=== PATIENT | female | born 1955 | race Caucasian/White ===

== ENCOUNTER 2020-11-26 18:07 | Emergency (ER) | payer MEDICARE ==
[2020-11-26] MEDS ORDERED: FENTANYL CITR 100 MCG/2 ML ONE (19:03)
[2020-11-26] MEDS ORDERED: ONDANSETRON 4 MG/2 ML VIAL ONE (19:05)
--- NOTE | 2020-11-26 19:20 | RAD REPORT ---
EXAM DESCRIPTION: RAD - Wrist Right 3 View - 11/26/2020 7:14 pm CLINICAL HISTORY: PAIN Pain COMPARISON: No comparisons FINDINGS: Moderately angulated fracture of the distal radius is present with mild impaction and comm inution. Moderate wrist soft tissue swelling. No carpal dislocation evident.
--- NOTE | 2020-11-26 19:28 | RAD REPORT ---
EXAM DESCRIPTION: RAD - Wrist Left 3 View - 11/26/2020 7:17 pm CLINICAL HISTORY: PAIN Pain COMPARISON: No comparisons FINDINGS: Mild intraarticular fracture is seen of the distal radius with surrounding soft tissue swe lling. No carpal dislocation is evident.
[2020-11-26] MEDS ORDERED: LIDOCAINE 1% MPF 5 ML VIAL ONE (20:09)
[2020-11-26] MEDS ORDERED: MORPHINE 4 MG/ML SYR ONE ×2 (20:10→20:39)
--- NOTE | 2020-11-26 21:18 | RAD REPORT ---
EXAM DESCRIPTION: RAD - Wrist Right 2 View - 11/26/2020 9:05 pm CLINICAL HISTORY: post reduction Pain COMPARISON: Wrist Right 3 View dated 11/26/2020 FINDINGS: The previously noted distal radius fracture has been partially reduced placed within a kunal ster splint. Approximately 5-6 mm of displacement of the fracture fragments persists. Bone detail is limited by splint material.
--- NOTE | 2020-11-26 21:36 | EDPHYS ---
Physician Documentation [facility] Name: Nadia Gay Age: 65 yrs Sex: Female : 1955 Arrival Date: 11/26/2020 Time: 18:15 Bed 26 Private MD: ED Physician Red Bailon HPI: 11/26 18:56 This 65 yrs old Female presents to ER via EMS with complaints of Wrist Pain. pm1 18:56 The patient or guardian reports pain. The complaints affect the left wrist diffusely, pm1 right wrist diffusely. Context: The problem was sustained outdoors, resulted from slipped on ice on steps. Landed with both hands out in front of her. No headache, head injury, neck pain, LOC. Onset: The symptoms/episode began/occurred just prior to arrival. Modifying factors: The symptoms are alleviated by holding still. Associated signs and symptoms: Pertinent negatives: cyanosis distally, decreased sensation distally, numbness distally, tingling distally. The patient has not experienced similar symptoms in the past. The patient has not recently seen a physician. Historical: - Allergies: 18:15 No Known Allergies; aa5 - PMHx: 18:15 None; aa5 - Immunization history:: Adult Immunizations unknown. - Social history:: Smoking status: Patient reports the use of cigarette tobacco products, denies chronic smoking, but will smoke occasionally. ROS: 18:56 Constitutional: Negative for fever, chills, and weight loss, Neck: Negative for injury, pm1 pain, and swelling, Cardiovascular: Negative for chest pain, palpitations, and edema, Respiratory: Negative for shortness of breath, cough, wheezing, and pleuritic chest pain, Skin: Negative for injury, rash, and discoloration, Neuro: Negative for headache, weakness, numbness, tingling, and seizure. 18:56 MS/extremity: Positive for pain, of the right wrist and left wrist. Exam: 18:56 Hand exam: Exam is positive for pain, tenderness, Pulses: noted to be 2+ in the right pm1 radial artery and left radial artery. 18:56 Skin: Exam negative for acute changes, any evidence of obvious injury. 18:56 Constitutional: This is a well developed, well nourished patient who is awake, alert, and in no acute distress. 18:56 Cardiovascular: Exam negative for acute changes, Rate: normal, Rhythm: regular, Pulses: no pulse deficits are appreciated. 18:56 Respiratory: Exam negative for acute changes, respiratory distress, shortness of breath. 18:56 Abdomen/GI: Exam negative for acute changes, Inspection: abdomen appears normal, Palpation: abdomen is soft and non-tender, in all quadrants. 18:56 Musculoskeletal/extremity: Extremities: no hip pain or tenderness present. 18:56 Neuro: Exam negative for acute changes, Orientation: is normal, Mentation: is normal, Motor: is normal, moves all fours, Sensation: is normal, no obvious gross deficits. Vital Signs: 18:15 BP 180 / 112; Pulse 88; Resp 17; Temp 98.4(TE); Pulse Ox 96% on R/A; Weight 49.9 kg; ss Height 5 ft. 7 in. (170.18 cm); Pain 8/10; 18:58 BP 147 / 106; Pulse 78; Resp 18 S; Pulse Ox 98% on R/A; aa5 19:04 Pulse Ox 87% on R/A; aa5 19:05 BP 145 / 104; Pulse 91; Resp 14 S; Pulse Ox 96% on 2 lpm NC; aa5 18:15 Body Mass Index 17.23 (49.90 kg, 170.18 cm) Procedures: 20:50 Splinting: Splint applied to right wrist using Orthoglass splint, applied by myself. pm1 Examined by me, post splint application: neurovascular intact, 2+ distal pulses palpable, brisk capillary refill noted, Patient tolerated well, reduced with traction. 20:50 Splinting: Splint applied to left wrist using Orthoglass splint, applied by myself. pm1 Examined by me, post splint application: neurovascular intact, 2+ distal pulses palpable, brisk capillary refill noted, Patient tolerated well. MDM: 18:29 Patient medically screened. pm1 19:02 Data reviewed: vital signs. pm1 21:29 Counseling: I had a detailed discussion with the patient and/or guardian regarding: the pm1 historical points, exam findings, and any diagnostic results supporting the discharge/admit diagnosis, radiology results, the need for outpatient follow up, for definitive care, a orthopedic surgeon, to return to the emergency department if symptoms worsen or persist or if there are any questions or concerns that arise at home. 11/26 18:30 Order name: Wrist Left (3 View) XRAY; Complete Time: 19:33 pm1 11/26 18:30 Order name: Wrist Right 3 View XRAY; Complete Time: 19:21 pm1 11/26 20:38 Order name: Wrist Right 2 View XRAY; Complete Time: 21:36 pm1 11/26 21:11 Order name: Wrist Right 2 View XRAY pm1 11/26 18:30 Order name: IV Saline Lock; Complete Time: 19:05 pm1 11/26 19:33 Order name: Sugar Tong Forearm Splint: bilateral; Complete Time: 21:20 pm1 11/26 19:34 Order name: Sling; Complete Time: 21:37 pm1 Administered Medications: 19:00 Drug: fentaNYL (PF) 50 mcg Route: IVP; Site: left antecubital; aa5 19:00 Drug: Zofran (Ondansetron) 4 mg Route: IVP; Site: left antecubital; aa5 20:18 Drug: morphine 4 mg Route: IVP; Site: left antecubital; sg 20:20 Drug: Lidocaine (1 %) 5 ml {Note: administered by Ildefonso FOUNTAIN for pre procedure.} sg Volume: 5 ml; Route: Infiltration; Disposition: 11/26/20 21:35 Discharged to Home. Impression: Closed distal right radius fracture with mild impaction and communition, Closed mild intrarticular left distal radius fracture, Fall on same level due to ice and snow. - Condition is Stable. - Discharge Instructions: Cast or Splint Care, Adult, Fall Prevention in the Home, Wrist Fracture Treated With Immobilization, How to Use a Sling. - Prescriptions for Tylenol- Codeine #3 300-30 mg Oral Tablet - take 2 tablets by ORAL route every 6 hours As needed; 20 tablet. - Medication Reconciliation Form, Thank You Letter, Antibiotic Education, Prescription Opioid Use form. - Follow up: Emergency Department; When: As needed; Reason: Worsening of condition. Follow up: Private Physician; When: 2 - 3 days; Reason: Recheck today's complaints, Continuance of care, Re-evaluation by your physician. - Problem is new. - Symptoms have improved. Addendum: 11/30/2020 19:27 Co-signature as Attending Physician, Red Bailon MD I agree with the assessment and t w4 plan of care. Signatures: Dispatcher [employer] EDMS Neto Sher, RN RN sg Yi Manzano RN RN aa5 Ildefonso Cash, SPECIAL EFFECTS PERSON SPECIAL EFFECTS PERSON pm1 Red Bailon MD MD tw4 Marybel Stevenson, RN RN ll2 Corrections: (The following items were deleted from the chart) 11/26 22:05 21:35 11/26/2020 21:35 Discharged to Home. Impression: Closed distal right radius ll2 fracture with mild impaction and communition; Closed mild intrarticular left distal radius fracture; Fall on same level due to ice and snow. Condition is Stable. Forms are Medication Reconciliation Form, Thank You Letter, Antibiotic Education, Prescription Opioid Use. Follow up: Emergency Department; When: As needed; Reason: Worsening of condition. Follow up: Private Physician; When: 2 - 3 days; Reason: Recheck today's complaints, Continuance of care, Re-evaluation by your physician. Problem is new. Symptoms have improved. pm1
--- NOTE | 2020-11-26 21:36 | ER ---
Nurse's Notes [facility] Name: Nadia Gay Age: 65 yrs Sex: Female : 1955 Arrival Date: 11/26/2020 Time: 18:15 Bed 26 Private MD: Diagnosis: Closed distal right radius fracture with mild impaction and communition;Closed mild intrarticular left distal radius fracture;Fall on same level due to ice and snow Presentation: 11/26 18:15 Chief complaint: Patient states: bilateral wrist pain after slipping on steps. Coronavirus screen: Client denies travel out of the [place] in the last 14 days. Ebola Screen: Patient denies exposure to infectious person. Patient denies travel to an Ebola-affected area in the 21 days before illness onset. 18:15 Method Of Arrival: EMS: [facility] 18:15 Acuity: EBONY 3 aa5 18:15 Initial Sepsis Screen: Does the patient meet any 2 criteria? No. Patient's initial aa5 sepsis screen is negative. Does the patient have a suspected source of infection? No. Patient's initial sepsis screen is negative. Risk Assessment: Do you want to hurt yourself or someone else? Patient reports no desire to harm self or others. Historical: - Allergies: 18:15 No Known Allergies; aa5 - PMHx: 18:15 None; aa5 - Immunization history:: Adult Immunizations unknown. - Social history:: Smoking status: Patient reports the use of cigarette tobacco products, denies chronic smoking, but will smoke occasionally. Screenin:30 Abuse screen: Denies threats or abuse. Nutritional screening: No deficits noted. ll2 Tuberculosis screening: No symptoms or risk factors identified. Fall Risk Fall in past 12 months (25 points). IV access (20 points). Assessment: 18:15 General: Appears uncomfortable, Behavior is calm, cooperative. Pain: Complains of pain aa5 in left wrist and right wrist Pain currently is 8 out of 10 on a pain scale. Quality of pain is described as sharp, throbbing, Pain began post-fall today Is continuous. Neuro: Level of Consciousness is awake, alert, obeys commands, Oriented to person, place, time, situation. Cardiovascular: Capillary refill < 3 seconds is brisk in bilateral fingers Patient's skin is warm and dry. Respiratory: Airway is patent Respiratory effort is even, unlabored, Respiratory pattern is regular, symmetrical. GI: No signs and/or symptoms were reported involving the gastrointestinal system. : No signs and/or symptoms were reported regarding the genitourinary system. EENT: No signs and/or symptoms were reported regarding the EENT system. Derm: Skin is pink, warm \T\ dry. Musculoskeletal: Deformity noted to mary wrist, swelling noted to mary wrist. 19:00 Reassessment: Patient is alert, oriented x 3, equal unlabored respirations, skin aa5 warm/dry/pink. 19:20 Reassessment: Patient is alert, oriented x 3, equal unlabored respirations, skin aa5 warm/dry/pink. Pt states pain has decreased after IV Fentanyl was given, states feeling better. . Vital Signs: 18:15 BP 180 / 112; Pulse 88; Resp 17; Temp 98.4(TE); Pulse Ox 96% on R/A; Weight 49.9 kg; ss Height 5 ft. 7 in. (170.18 cm); Pain 8/10; 18:58 BP 147 / 106; Pulse 78; Resp 18 S; Pulse Ox 98% on R/A; aa5 19:04 Pulse Ox 87% on R/A; aa5 19:05 BP 145 / 104; Pulse 91; Resp 14 S; Pulse Ox 96% on 2 lpm NC; aa5 18:15 Body Mass Index 17.23 (49.90 kg, 170.18 cm) ED Course: 18:15 Patient arrived in ED. ss 18:15 Arm band placed on. aa5 18:15 Patient has correct armband on for positive identification. Bed in low position. Call aa5 light in reach. Side rails up X2. Pulse ox on. NIBP on. 18:28 Ildefonso Cash, JAKI is PHCP. pm1 18:28 Red Bailon MD is Attending Physician. pm1 19:00 Report given to GERMANIA No. aa5 19:08 Triage completed. aa5 19:11 Wrist Left (3 View) XRAY In Process Unspecified. EDMS 19:11 Wrist Right 3 View XRAY In Process Unspecified. EDMS 21:05 Wrist Right 2 View XRAY In Process Unspecified. EDMS 21:22 Wrist Right 2 View XRAY In Process Unspecified. EDMS 21:30 No provider procedures requiring assistance completed. IV discontinued, intact, ll2 bleeding controlled, No redness/swelling at site. Pressure dressing applied. 22:05 Marybel Stevenson, RN is Primary Nurse. ll2 Administered Medications: 19:00 Drug: fentaNYL (PF) 50 mcg Route: IVP; Site: left antecubital; aa5 19:00 Drug: Zofran (Ondansetron) 4 mg Route: IVP; Site: left antecubital; aa5 20:18 Drug: morphine 4 mg Route: IVP; Site: left antecubital; sg 20:20 Drug: Lidocaine (1 %) 5 ml {Note: administered by Ildefonso FOUNTAIN for pre procedure.} sg Volume: 5 ml; Route: Infiltration; Outcome: 21:30 Discharged to home ambulatory. ll2 21:30 Condition: stable 21:30 Discharge instructions given to patient, Instructed on discharge instructions, follow up and referral plans. medication usage, Demonstrated understanding of instructions, follow-up care, medications, Prescriptions given X 1. 21:35 Discharge ordered by . pm1 22:05 Patient left the ED. ll2 Signatures: Dispatcher [employer] EDMS Neto Sher RN RN sg Calderon, Audri, RN RN aa5 Bernadette Huffman RN RN ss Marinas, Patrick, JAKI [employer] pm1 Marybel Stevenson, RN RN ll2
[2020-11-26 22:10] VITALS: TEMP 98.4
[2020-11-26 22:13] VITALS: BP 145/104; O2SAT 96
--- NOTE | 2020-11-27 07:54 | RAD REPORT ---
EXAM DESCRIPTION: RAD - Wrist Right 2 View - 11/26/2020 9:22 pm CLINICAL HISTORY: Post reduction, radius fracture COMPARISON: Wrist Right 2 View dated 11/26/2020; Wrist Right 3 View dated 11/26/2020 FINDINGS: PA and lateral views of the wrist were obtained with cast material in place. The second se t of post reduction images show the distal radius fracture now reduced to near anatomic alignment and position, substantially improved from the initial postreduction image. Ulna styloid fracture noted. IMPRESSION: The second set of post reduction images shows significant improvement in the alignment a nd position of the radius fracture fragment.
== END 2020-11-26 22:05 | disposition home or self-care (01) ==
LOC: ER 18:07 → EDBD 18:07 → ER 22:05
PROC: 2W3DX1Z Immobilization of Left Lower Arm using Splint (ICD-10-PCS; principal; 2020-11-26)
PROC: 2W3CX1Z Immobilization of Right Lower Arm using Splint (ICD-10-PCS; 2020-11-26)
DX: S52.591A Other fractures of lower end of right radius, initial encounter for closed fracture (principal); S52.572A Other intraarticular fracture of lower end of left radius, initial encounter for closed fracture; M25.532 Pain in left wrist; W00.0XXA Fall on same level due to ice and snow, initial encounter; Y93.89 Activity, other specified; Y92.89 Other specified places as the place of occurrence of the external cause; F17.210 Nicotine dependence, cigarettes, uncomplicated
CPT/HCPCS: 73110 ×2; 73100 ×2; 96375; 96374; 99284; 29125; J3010; J2405